=== PATIENT | female | born 1945 | race Caucasian/White ===

== ENCOUNTER → 2016-08-26 | Outpatient (CLI) | payer MEDICARE, BC ==
--- NOTE | 2016-08-26 14:23 | RADRPT ---
PROCEDURE: XR pelvis/left hip. CLINICAL INDICATION: Hip pain TECHNIQUE: AP pelvis/AP and lateral left hip views performed COMPARISON: 11/24/2015 FINDINGS: No change in the ORIF of the left hip with an intramedullary merna and dynamic compression pin. There is moderate bilateral hip osteoarthrosis. This is associated with joint space narrowing, subch ondral sclerosis and osteophytosis. There is normal mineralization. No fractures or osseous lesion s are identified. The soft tissues are unremarkable. IMPRESSION: No change in the ORIF of the left hip with an intramedullary merna and dynamic compression pin Moderate bilateral hip osteoarthrosis. RPTAT: [facility] .Eusebio Phelps MD, Date Time Electronically viewed and signed by .Eusebio Phelps MD, on 08/26/2016 14:23 .B/
--- NOTE | 2016-08-26 14:25 | RADRPT ---
PROCEDURE: XR left femur. CLINICAL INDICATION: Pain TECHNIQUE: AP and lateral views of the lower left femur performed. COMPARISON: 11/24/2015 FINDINGS: There is a locking intramedullary merna. There is normal mineralization, architecture and alignment. No fracture or osseous lesion is identif ied. The joints are unremarkable. The soft tissues are unremarkable. IMPRESSION: Locking femoral intramedullary merna. Otherwise unremarkable examination RPTAT: [facility] .Eusebio Phelps MD, MD Date Time Electronically viewed and signed by .Eusebio Phelps MD, on 08/26/2016 14:25 .B/
== END | disposition home or self-care (01) ==
LOC: HKI 10:29
PROVIDERS: ATTEND Orthopaedic Surgery
DX: M63.85 Disorders of muscle in diseases classified elsewhere, thigh (principal); M25.552 Pain in left hip; M76.32 Iliotibial band syndrome, left leg; S72.142D Displaced intertrochanteric fracture of left femur, subsequent encounter for closed fracture with routine healing; X58.XXXD Exposure to other specified factors, subsequent encounter
CPT/HCPCS: 73502; 73552; G0463

== ENCOUNTER → 2016-08-30 | Outpatient (CLI) | payer MEDICARE, BC | END | disposition home or self-care (01) | LOC: HKI 08:38 | PROVIDERS: ATTEND Orthopaedic Surgery | DX: M70.62 Trochanteric bursitis, left hip (principal); M63.85 Disorders of muscle in diseases classified elsewhere, thigh; S72.142D Displaced intertrochanteric fracture of left femur, subsequent encounter for closed fracture with routine healing | CPT/HCPCS: 20610; J1030 ==

== ENCOUNTER → 2017-02-10 | Outpatient (CLI) | payer MEDICARE, BC | END | disposition home or self-care (01) | LOC: HKI 10:30 | PROVIDERS: ATTEND Orthopaedic Surgery | DX: M25.552 Pain in left hip (principal); M70.62 Trochanteric bursitis, left hip; S72.142D Displaced intertrochanteric fracture of left femur, subsequent encounter for closed fracture with routine healing | CPT/HCPCS: 20610; G0463; J1030 ==